=== PATIENT | female | born 1995 | race Hispanic/Latino ===

== ENCOUNTER 2017-05-04 05:44 | Day surgery (SDC) | payer BC, MEDICAID ==
[~2017-05-04] VITALS: Ht 147.3 cm; Wt 42.5 kg
[~2017-05-04 05:44] MED LIST: CARAFATE PO; DICY10CA13 PO; ESOM40CA PO; GICOCKTAIL PO; RANI150C4 PO; VITAMIN B12 IM
[2017-05-04 05:55] VITALS: BP 80/55
[2017-05-04] MEDS ORDERED: SODIUM CHLORIDE 0.9% 1000ML 1,000 ML IV ONE (06:32)
[2017-05-04] MEDS ORDERED: PHENYLEPHRINE HCL 10 MG/ML 1ML VIAL IV ONE (07:39)
[2017-05-04] MEDS ORDERED: GLYCOPYRROLATE 0.2 MG/ML 5 ML VIAL ONE (07:39)
[2017-05-04] MEDS ORDERED: PROPOFOL 10 MG/ML 20ML VIAL IV ONE (07:39)
[2017-05-04] MEDS ORDERED: LIDOCAINE HCL 1% 20 ML VIAL ONE (07:39)
[2017-05-04] MEDS ORDERED: BENZOCAINE 20% 57 GM SPRAY ONE (07:40)
[2017-05-04 08:07] VITALS: BP 88/44
[2017-05-04 08:12] VITALS: BP 90/44
[2017-05-04 08:17] VITALS: BP 97/48
[2017-05-04 08:25] VITALS: BP 106/7
== END 2017-05-04 08:32 | disposition home or self-care (01) ==
LOC: DAH 05:44 → EDSTATUS 12:11
PROVIDERS: ATTEND Internal Medicine
DX: K29.50 Unspecified chronic gastritis without bleeding (principal); K21.9 Gastro-esophageal reflux disease without esophagitis; K31.89 Other diseases of stomach and duodenum; Q90.9 Down syndrome, unspecified; K44.9 Diaphragmatic hernia without obstruction or gangrene
CPT/HCPCS: 43239; 88305; 88313; 88342; A4606; J2370; J2704; J3490; J7030